=== PATIENT | female | born 1975 | race Hispanic/Latino ===

== ENCOUNTER 2018-11-16 15:24 | Emergency (ER) | payer OTHER ==
[2018-11-16] MEDS ORDERED: Adacel (T-DAP) 0.5 ML SYRINGE ONE (15:47)
[2018-11-16] MEDS ORDERED: Lidocaine 2% 6 ML SYR ONE (15:50)
[2018-11-16] MEDS ORDERED: Lidocaine 2% PF 5 ML VIAL ONE (15:51)
--- NOTE | 2018-11-16 18:46 | RAD ---
LEFT HAND THREE VIEWS: 11/16/2018 FINDINGS: No fracture or opaque foreign body is seen. All bones appear intact. IMPRESSION: No acute findings. POS: HOME
== END 2018-11-16 16:18 | disposition home or self-care (01) ==
LOC: BURERS 15:24
DX: S61.412A Laceration without foreign body of left hand, initial encounter (principal); F17.210 Nicotine dependence, cigarettes, uncomplicated; W26.0XXA Contact with knife, initial encounter
CPT/HCPCS: 12001; 90471; 90715; J2001